=== PATIENT | female | born 1975 | race Caucasian/White ===

== ENCOUNTER 2017-08-25 02:34 | Emergency (ER) | payer SELFPAY ==
[2017-08-25] MEDS: ONDANSETRON 4 MG INJ IV (02:52)
[2017-08-25] MEDS: LORAZEPAM 2 MG INJ IV (02:52)
[2017-08-25] MEDS: SOD CHLORIDE 0.9% 1,000 ML IV (02:53)
== END 2017-08-25 10:46 | disposition home or self-care (01) ==
LOC: E/R 10:46
DX: F10.920 Alcohol use, unspecified with intoxication, uncomplicated (principal)
CPT/HCPCS: 96374; 96375; 99284-25

== ENCOUNTER 2019-03-07 01:44 | Emergency (ER) | payer SELFPAY ==
[2019-03-07] MEDS: LORAZEPAM 1 MG TAB PO (02:50)
[2019-03-07] MEDS: LIDOCAINE 2% (MDV) 20 ML INJ INJ (03:26)
== END 2019-03-07 05:03 | disposition home or self-care (01) ==
LOC: FTE 01:44
DX: S61.212A Laceration without foreign body of right middle finger without damage to nail, initial encounter (principal); S61.214A Laceration without foreign body of right ring finger without damage to nail, initial encounter; X99.1XXA Assault by knife, initial encounter
CPT/HCPCS: 12001; 99283-25